=== PATIENT | male | born 1990 | race Caucasian/White ===

== ENCOUNTER 2020-12-30 19:28 | Emergency (ER) | payer OTHER ==
[~2020-12-30] VITALS: Ht 203.2 cm; Wt 172.4 kg
[2020-12-30] MEDS ORDERED: ACETAMINOPHEN 500 MG TABLET ONE (19:51)
[2020-12-30] MEDS ORDERED: ACETAMINOPHEN 500 MG TABLET PO ONE (20:00)
--- NOTE | 2020-12-30 21:03 | NUR ---
pt presents to ed with c/o SOB, fever, and body aches x3 days. no covid vaccine. pt a&o, resps even and rapid, nadn.
[2020-12-30] MEDS ORDERED: ALBUTEROL SULFATE 2.5 MG/3 ML NPPB ONE (22:00)
[2020-12-30] MEDS ORDERED: CASIRIVIMAB 600 MG, IMDEVIMAB (REGN10987) 600 MG in SODIUM CHLORIDE 0.9% 250 ML IVPB ONE (22:30)
[2020-12-30] MEDS ORDERED: FILTER 0.22 MICRON IV ONE (22:30)
[2020-12-30] MEDS ORDERED: ALBUTEROL SULFATE 2.5 MG/3 ML ONE (23:07)
--- NOTE | 2020-12-30 23:26 | NUR ---
regeneron started, breathing tx in progress, radha.
[2020-12-31 00:45] VITALS: BP 130/60
--- NOTE | 2020-12-31 00:45 | NUR ---
pt vss, in nad. [facility]ct[facility] for next hour post regeneron infusion
--- NOTE | 2020-12-31 01:52 | NUR ---
pt educated on dc instructions and prescription, verbalized understanding.
== END 2020-12-31 01:55 | disposition home or self-care (01) ==
LOC: ED 23:59
DX: U07.1 COVID-19 (principal); J12.82 Pneumonia due to coronavirus disease 2019; R06.02 Shortness of breath
CPT/HCPCS: 71045; 94640; 96365; 99284; J7512; J7613; U0003; U0005